=== PATIENT | male | born 1995 | race Caucasian/White ===

== ENCOUNTER 2020-02-19 23:23 | Emergency (ER) | payer MEDICAID ==
[~2020-02-19] VITALS: Ht 175.3 cm; Wt 68.2 kg
[2020-02-19 23:29] VITALS: BP 148/83
[2020-02-20] MEDS ORDERED: FAMO40TA73 PO (01:55)
[2020-02-21] MEDS ORDERED: NAPR-56 PO (11:34)
[2020-02-21] MEDS ORDERED: PENI250T2 PO (11:34)
== END 2020-02-20 02:43 | disposition home or self-care (01) ==
LOC: ER 23:24
DX: K20.9 Esophagitis, unspecified (principal); R42 Dizziness and giddiness; F17.200 Nicotine dependence, unspecified, uncomplicated; F12.90 Cannabis use, unspecified, uncomplicated; R11.10 Vomiting, unspecified; Z88.6 Allergy status to analgesic agent; Z79.899 Other long term (current) drug therapy
CPT/HCPCS: 99283

== ENCOUNTER 2020-02-20 16:45 | Emergency (ER) | payer MEDICAID ==
[~2020-02-20] VITALS: Ht 175.3 cm; Wt 68.2 kg
[~2020-02-20 16:45] MED LIST: FAMO40TA73 PO
[2020-02-20 17:10] VITALS: BP 128/88
--- NOTE | 2020-02-20 17:29 | NUR ---
pt states all he wants is bus pass for [employer] to [facility]. told the patient we do not provide transportation to [facility]. pt decided that he was going to leave without being seen if he could not get a [employer] bus pass
[2020-02-21] MEDS ORDERED: NAPR-56 PO (11:34)
[2020-02-21] MEDS ORDERED: PENI250T2 PO (11:34)
== END 2020-02-20 17:33 | disposition left against medical advice (07) ==
LOC: ER 16:46
DX: R10.9 Unspecified abdominal pain (principal); Z53.21 Procedure and treatment not carried out due to patient leaving prior to being seen by health care provider

== ENCOUNTER 2020-02-20 22:55 | Emergency (ER) | payer MEDICAID ==
[~2020-02-20] VITALS: Ht 172.7 cm; Wt 54.2 kg
[2020-02-20 23:01] VITALS: BP 130/79
[2020-02-21] MEDS ORDERED: NAPR-56 PO (11:34)
[2020-02-21] MEDS ORDERED: PENI250T2 PO (11:34)
== END 2020-02-21 00:25 | disposition home or self-care (01) ==
LOC: ER 22:55
DX: M79.671 Pain in right foot (principal); F12.90 Cannabis use, unspecified, uncomplicated; Z59.0 Homelessness; Z88.6 Allergy status to analgesic agent; Z88.8 Allergy status to other drugs, medicaments and biological substances; Z79.899 Other long term (current) drug therapy
CPT/HCPCS: 99281

== ENCOUNTER 2020-02-21 10:58 | Emergency (ER) | payer MEDICAID ==
--- NOTE | 2020-02-21 11:05 | NUR ---
PT SEEN/ASSESSED AND PLAN OF DISCHARGE BY PROVIDER JOSHUA GLOVER. RIGHT AFTER BEING SEEN PT DEPARTED, PT HAD NOT BEEN TRIAGED.
[2020-02-21] MEDS ORDERED: NAPR-56 PO (11:34)
[2020-02-21] MEDS ORDERED: PENI250T2 PO (11:34)
== END 2020-02-21 11:53 | disposition home or self-care (01) ==
LOC: ER 10:59
DX: K08.89 Other specified disorders of teeth and supporting structures (principal); F12.90 Cannabis use, unspecified, uncomplicated; Z59.0 Homelessness; Z88.6 Allergy status to analgesic agent; Z88.8 Allergy status to other drugs, medicaments and biological substances; Z79.2 Long term (current) use of antibiotics; Z79.899 Other long term (current) drug therapy
CPT/HCPCS: 99283

== ENCOUNTER 2020-02-21 14:10 | Emergency (ER) | payer MEDICAID ==
[~2020-02-21] VITALS: Ht 175.3 cm; Wt 61.0 kg
[~2020-02-21 14:10] MED LIST changes: +NAPR-56 PO; +PENI250T2 PO
[2020-02-21 14:13] VITALS: BP 124/80
--- NOTE | 2020-02-21 14:20 | NUR ---
Pt had visit earlier today and was already evaluated by provider for same but left without DCI or script. Given script and DCI in triage during this visit. Pt instructed to take abx until completion and f/u with dentist MARY LOU; pt verbalized understanding. Amb from ER with steady gait and NAD.
== END 2020-02-21 14:25 | disposition home or self-care (01) ==
LOC: ER 14:11
DX: K08.89 Other specified disorders of teeth and supporting structures (principal); Z53.21 Procedure and treatment not carried out due to patient leaving prior to being seen by health care provider

== ENCOUNTER 2020-02-21 17:55 | Emergency (ER) | payer MEDICAID | END 2020-02-21 19:13 | disposition left against medical advice (07) | LOC: ER 17:56 | DX: T14.8XXA Other injury of unspecified body region, initial encounter (principal); Z53.21 Procedure and treatment not carried out due to patient leaving prior to being seen by health care provider; W57.XXXA Bitten or stung by nonvenomous insect and other nonvenomous arthropods, initial encounter; Y93.89 Activity, other specified; Y92.89 Other specified places as the place of occurrence of the external cause; Y99.8 Other external cause status ==

== ENCOUNTER 2020-02-21 20:57 | Emergency (ER) | payer MEDICAID ==
[~2020-02-21] VITALS: Ht 172.7 cm; Wt 68.2 kg
[2020-02-21 21:01] VITALS: BP 137/91
--- NOTE | 2020-02-21 21:03 | NUR ---
He has no medical complaints other than wanting ativan. Sixth visit today.
== END 2020-02-21 22:09 | disposition left against medical advice (07) ==
LOC: ER 20:57
DX: F41.9 Anxiety disorder, unspecified (principal); Z53.21 Procedure and treatment not carried out due to patient leaving prior to being seen by health care provider

== ENCOUNTER 2020-02-26 06:18 | Emergency (ER) | payer MEDICAID ==
[~2020-02-26] VITALS: Ht 172.7 cm; Wt 68.2 kg
[2020-02-26] MEDS ORDERED: LORA-269 PO (07:05)
[2020-02-26 07:33] LABS: BASOPHILS # (AUTO) 0.1 X10'3 (0-0.2); BASOPHILS % (AUTO) 0.7 % (0-1); EOSINOPHILS # (AUTO) 1.2 X10'3 (0-0.9); EOSINOPHILS % (AUTO) 14.4 % (0-6); HEMATOCRIT 45.1 % (42.0-52.0); HEMOGLOBIN 15.2 g/dl (14.0-17.9); LYMPHOCYTES # (AUTO) 1.3 X10'3 (1.1-4.8); LYMPHOCYTES % (AUTO) 15.7 % (21-51); MEAN CORPUSCULAR HEMOGLOBIN 30.6 PG (27.0-31.0); MEAN CORPUSCULAR HGB CONC 33.6 g/dL (33.0-36.5); MEAN CORPUSCULAR VOLUME 90.9 FL (78-98); MEAN PLATELET VOLUME 8.1 FL (7.4-10.4); MONOCYTES # (AUTO) 0.5 X10'3 (0-0.9); MONOCYTES % (AUTO) 6.2 % (2-12); NEUTROPHILS # (AUTO) 5.3 X10'3 (1.8-7.7); PLATELET COUNT 241 X10'3 (140-440); RED BLOOD COUNT 4.96 X10'6 (4.70-6.10); RED CELL DISTRIBUTION WIDTH 12.7 % (11.5-14.5); WHITE BLOOD COUNT 8.4 X10'3 (4.5-11.0)
[2020-02-26 07:46] LABS: ALANINE AMINOTRANSFERASE 35 U/L (12-78); ALBUMIN/GLOBULIN RATIO 1.3 (1.1-1.5); ALKALINE PHOSPHATASE 74 IU/L (46-116); ANION GAP 5 (8-16); ASPARTATE AMINO TRANSFERASE 15 U/L (10-37); BILIRUBIN,TOTAL 0.3 MG/DL (0.1-1.0); BLOOD UREA NITROGEN 10 MG/DL (7-18); BUN/CREATININE RATIO 10.4 (5.4-32.0); CALCIUM 8.4 MG/DL (8.5-10.1); CHLORIDE 104 MMOL/L (99-107); CREATININE 0.96 MG/DL (0.60-1.10); GLUCOSE 86 MG/DL (70-104); POTASSIUM 4.1 MMOL/L (3.5-5.1); SODIUM 140 MMOL/L (135-145); eGFR > 90 ML/MIN
[2020-02-26 08:00] LABS: ETHANOL < 0.010 GM/DL (0.0-0.010)
--- NOTE | 2020-02-26 09:01 | NUR ---
went in to ask pt to urinate. pt states he doesn't feel like there is anything in his bladder and that he doesn't need to at this time. urinal provided to pt. will cont to encourage pt to void
[2020-02-26 09:37] LABS: URINE AMPHETAMINE SCREEN NEGATIVE (Neg); URINE BARBITUATE SCREEN NEGATIVE (Neg); URINE BENZODIAZEPINES SCREEN NEGATIVE (Neg); URINE CANNABINOID SCREEN POSITIVE (Neg); URINE COCAINE SCREEN NEGATIVE (Neg); URINE METHADONE SCREEN NEGATIVE (Neg); URINE OPIATE SCREEN NEGATIVE (Neg); URINE PHENCYCLIDINE SCREEN NEGATIVE (Neg)
--- NOTE | 2020-02-26 10:07 | NUR ---
meal provided to pt, pt ate then went back to sleep. no signs of distress noted
--- NOTE | 2020-02-26 10:50 | NUR ---
Maggie reynaga in [facility] - 02/26/20 at 1051 by JUL[facility] called back and is talking with
--- NOTE | 2020-02-26 11:12 | NUR ---
Pt transferred from ED8 to OF via WC by PCT Pepe. Primary LIBIA Hines to call report upon return from 15m break. Addendum: 02/26/20 at 1114 by RSTESTARLA pt to OF24.
--- NOTE | 2020-02-26 11:15 | NUR ---
Patient arrived to ED overflow-bed 24. Resting in bed with eyes closed. No s/sx of distress noted.
--- NOTE | 2020-02-26 11:50 | NUR ---
Called pharmacy on chart, [facility] to clarify meds, states patient has not had meds refilled in over 1 year. Asked patient where he gets his meds filled, patient states, "I don't know."
--- NOTE | 2020-02-26 12:30 | NUR ---
Resting in bed with eyes closed, no s/sx of distress noted. Able to make needs known.
--- NOTE | 2020-02-26 13:17 | NUR ---
Patient finished lunch, up to BR currently. Resting back in bed with eyes closed. Registration at bedside to have him sign papers.
--- NOTE | 2020-02-26 14:40 | NUR ---
Patient resting in bed with eyes closed, no s/sx of distress noted. Will cont.to monitor.
--- NOTE | 2020-02-26 15:38 | NUR ---
[facility] speaking with patient at this time. Patient awake and resting in bed.
--- NOTE | 2020-02-26 16:32 | NUR ---
Transferred care to Katiuska REZA.
--- NOTE | 2020-02-26 17:40 | NUR ---
Up to bathroom, asking when dinner comes
[2020-02-26] MEDS ORDERED: LORazepam 1 MG tablet PO PRN (20:20)
--- NOTE | 2020-02-26 20:50 | NUR ---
LIBIA Marcos from [facility] called and they will be admitting the patient upstairs.
[2020-02-26 21:50] VITALS: BP 114/61
[2020-02-28] MEDS ORDERED: FAMO40TA73 PO (11:01)
[2020-02-28] MEDS ORDERED: TRAZ-251 PO (11:01)
[2020-02-28] MEDS ORDERED: NICO-687 TD (11:01)
[2020-02-28] MEDS ORDERED: PENI250T2 PO (11:01)
== END 2020-02-26 21:55 | disposition home or self-care (01) ==
LOC: ER 06:18
DX: R45.851 Suicidal ideations (principal); F17.200 Nicotine dependence, unspecified, uncomplicated; F12.90 Cannabis use, unspecified, uncomplicated; Z59.0 Homelessness; Z88.8 Allergy status to other drugs, medicaments and biological substances; Z79.899 Other long term (current) drug therapy
CPT/HCPCS: 36415; 80053; 80305; 80320; 84443; 85025; 99285

== ENCOUNTER 2025-01-08 19:51 | Emergency (ER) | payer MEDICAID ==
[~2025-01-08] VITALS: Ht 167.6 cm; Wt 65.5 kg
[~2025-01-08 19:51] MED LIST changes: -NAPR-56 PO; +NICO-687 TD; +TRAZ-251 PO
--- NOTE | 2025-01-08 20:08 | Physician Documentation ---
History of Present Illness ~ Chief Complaint: Anxiety Stated Complaint: Primary Medical Doctor: none HPI 29-year-old male presents to the ED with a complaint of decline economic circumstances. Also states he has concerned about the friends he has been hanging out with. He does report ongoing methamphetamine use. Additionally he says he he has a history of schizoaffective disorder along with having depression anxiety. States he wants to get back to [place]. He adamantly denies having any SI or HI intention. Medication Reconciliation Allergies: Coded Allergies: acetaminophen (Unverified Allergy, Intermediate, THROAT SWELL, 01/08/25) quetiapine (Unverified Allergy, Intermediate, THROAT SWELL, 01/08/25) aspirin (Unverified Allergy, Mild, THROAT SWELL, 01/08/25) Scheduled Buspirone Hcl* (Buspar*), 1 TAB PO Q12H Famotidine (Pepcid), 1 TABLET PO DAILY Hydroxyzine Hcl* (Atarax*), 1 TAB PO Q12H Nicotine 21 MG Patch* (Habitrol 21 MG Patch*), 1 PATCH TD DAILY Penicillin V Potassium* (Penicillin VK*), 1 TAB PO Q6H Scheduled PRN Trazodone HCl (Trazodone HCl), 50 MG PO HS PRN for INSOMNIA Past Medical History Past Medical History: No Pertinent History Past Surgical History: noncontributory Alcohol Use: None Drug Use: marijuana Lives In: Homeless Physical Exam Vital Signs: Temperature: 96.8, Source: Temporal, Heart Rate: 101, Respiratory Rate: 15, BP: 144/94, Pulse Oximetry: 99, Weight: 65.500 Progress Results/Orders Results/Orders Completed Orders - JUSTIN PURCELL NP Hydroxyzine Tablet (Atarax Tablet) (01/08/25 20:10) Medications Received in ER Medications (Trade) Dose Ordered Sig/Yousif Route PRN Reason Start Time Stop Time Status Last Admin Dose Admin (Atarax tablet) 25 mg ONCE ONCE PO 01/08/25 20:10 01/08/25 20:11 DC 01/08/25 20:41 25 MG Vital Signs 01/08/25 01/08/25 19:55 20:47 Temp 96.8 98.6 Pulse 101 99 Resp 15 20 B/P (MAP) 144/94 140/90 Pulse Ox 99 98 Medical Decision Making Findings Based on my interview with the patient he does not meet criteria for a 1799 hold as he does not present with a HI SI nor does he show the clinical indications for being gravely disabled. Can not give him a bus pass in an prescribe anxiety medication as he does have insight to what he previously took. Due to his socioeconomic circumstances, he would likely benefit with from a ride to [place] back to be with his family in his hometown Differential Dx:Considerations: Include: Alcohol abuse, Anxiety, Bipolar disorder, Conversion disorder, Depression, Encephaloathy, Homicidal, Panic disorder, Personality disorder, Schizophrenia, Substance abuse, Suicidal, Other Departure Disposition: HOME / SELF CARE / HOMELESS Impression: Primary Impression: Anxiety Additional Impressions: Depressed Methamphetamine abuse Condition: Stable Discharge Instructions: Panic Attack, Emotional Crisis Referrals: NO PRIMARY CARE PROVIDER (PCP) Prescriptions Hydroxyzine Hcl* (Atarax*) 25 Mg Tablet 1 TAB PO Q12H for anxiety for 30 Days, #60 TAB Prov: JUSTIN PURCELL NP 01/08/25 Buspirone Hcl* (Buspar*) 10 Mg Tablet 1 TAB PO Q12H for 30 Days, #60 TAB Prov: JUSTIN PURCELL DIRECTOR DENTAL SERVICES 01/08/25 Education Educated: Patient Educated regarding: diagnosis Signature Scribe Signature: chiquis Attestation: Scribed for Emergency,Department by Justin Purcell - VICENTE . 01/08/25 23:50 JUSTIN PURCELL NP Jan 08, 2025 20:08
[2025-01-08] MEDS ORDERED: BUSP10TA11 PO (20:11)
[2025-01-08] MEDS ORDERED: HYDR-3686 PO (20:11)
[2025-01-08] MEDS: hydrOXYzine 25 MG tablet PO ONE (20:41)
[2025-01-08 20:47] VITALS: BP 140/90; PULSE 99; RESP 20; TEMP 98.6; O2SAT 98
[2025-01-09] MEDS ORDERED: BUSP10TA3 PO (21:31)
== END 2025-01-08 20:48 | disposition home or self-care (01) ==
LOC: ER 19:51
DX: F41.9 Anxiety disorder, unspecified (principal); F32.A Depression, unspecified; F15.10 Other stimulant abuse, uncomplicated; F25.9 Schizoaffective disorder, unspecified; F12.90 Cannabis use, unspecified, uncomplicated; Z88.6 Allergy status to analgesic agent
CPT/HCPCS: 99283; Q0177

== ENCOUNTER 2025-01-09 19:43 | Emergency (ER) | payer MEDICAID ==
[~2025-01-09] VITALS: Ht 175.3 cm; Wt 84.3 kg
[~2025-01-09 19:43] MED LIST changes: +BUSP10TA11 PO; +HYDR-3686 PO
--- NOTE | 2025-01-09 20:31 | Physician Documentation ---
History of Present Illness ~ Chief Complaint: Mental Health Eval Stated Complaint: MH EVAL/NOT FEELING SAFE IN PUBLIC Time Seen by MD: 20:30 Primary Medical Doctor: none HPI Patient is seen today with complaints of suicidal ideation starting today. Karol jarrett admits to history of schizophrenia and states he has been taking today about stepping out front of the car. Patient denies any homicidal ideation. Patient denies any previous suicide attempts. Patient denies any chest pain or shortness of breath or abdominal pain or nausea, vomiting, diarrhea. Patient has no other concern or complaint at this time. Medication Reconciliation Allergies: Coded Allergies: acetaminophen (Unverified Allergy, Intermediate, THROAT SWELL, 01/08/25) quetiapine (Unverified Allergy, Intermediate, THROAT SWELL, 01/08/25) aspirin (Unverified Allergy, Mild, THROAT SWELL, 01/08/25) Scheduled Buspirone HCl (Buspirone HCl), 1 TAB PO BID, (Reported) Discontinued Medications Buspirone Hcl* (Buspar*), 1 TAB PO Q12H Discontinued Reason: patient no longer taking Famotidine (Pepcid), 1 TABLET PO DAILY Discontinued Reason: patient no longer taking Hydroxyzine Hcl* (Atarax*), 1 TAB PO Q12H Discontinued Reason: patient no longer taking Nicotine 21 MG Patch* (Habitrol 21 MG Patch*), 1 PATCH TD DAILY Discontinued Reason: patient no longer taking Penicillin V Potassium* (Penicillin VK*), 1 TAB PO Q6H Discontinued Reason: patient no longer taking Trazodone HCl (Trazodone HCl), 50 MG PO HS PRN for INSOMNIA Discontinued Reason: patient no longer taking Past Medical History Past Medical History: No Pertinent History Past Surgical History: noncontributory Alcohol Use: None Drug Use: marijuana Lives In: Homeless Review of Systems Constitutional: Denies: chills, fever, weakness Eyes: Denies: pain, blurred vision ENT: Denies: ear pain, nose pain, throat pain, mouth pain Respiratory: Denies: cough, shortness of breath Cardiovascular: Denies: chest pain, palpitations Gastrointestinal: Denies: abdominal pain, nausea, vomiting Genitourinary: Denies: burning, dysuria Male Genitalia: Denies: penile discharge, testicular pain Neurological: Denies: headache, dizziness Musculoskeletal: Denies: pain, swelling Integumentary: Denies: rash, lesions Allergic/Immunologic: Denies: hives, itching Hematologic/Lymphatic: Denies: no symptoms reported Psychiatric: Denies: depression, anxiety Physical Exam Vital Signs: Temperature: 98.3, Heart Rate: 81, Respiratory Rate: 16, BP: 138/89, Pulse Oximetry: 99, Weight: 84.350 Oxygen Flow Rate: 0 Physical Exam General: Awake and Alert, no acute distress. HEENT: Conjunctiva pink, Sclera clear, Mucus Membranes moist. Neck: Supple without masses and tenderness. Resp: Unlabored. Lungs clear to auscultation bilaterally. Heart: Regular Rate and rhythm, normal S1 and S2 without murmur, rub or gallop. Abdomen: Soft and non tender no organomegaly Extremities: No cyanosis,clubbing or edema. Skin: Warm and Dry. Progress Results/Orders Results/Orders Orders - HARSHAD KUMAR Med Rec (01/09/25 20:30) 1799.11 (01/09/25 20:30) Close Observation Level (01/09/25 20:30) Covid19 Binax Poc Result Entry (01/09/25 20:30) Substance Use Navigator (01/09/25 20:30) Regular Diet (01/10/25 Breakfast) Buspirone Tablet (Buspar Tablet) (01/09/25 22:08) Completed Orders - HARSHAD KUMAR Cbc/Diff (01/09/25 20:30) Drug Screen, Urine (01/09/25 20:30) Ethanol (01/09/25 20:30) TSH (01/09/25 20:30) BMP (01/09/25 20:30) Ua With Microscopic (01/09/25 23:20) Vital Signs 01/09/25 19:47 Temp 98.3 Pulse 81 Resp 16 B/P (MAP) 138/89 Pulse Ox 99 O2 Flow Rate 0 Laboratory Tests Test 01/09/25 20:32 01/09/25 20:39 01/09/25 23:20 SARS-CoV-2 Antigen (Rapid) Negative White Blood Count 5.6 Red Blood Count 4.82 Hemoglobin 14.4 Hematocrit 42.4 Mean Corpuscular Volume 87.9 Mean Corpuscular Hemoglobin 29.9 Mean Corpuscular Hemoglobin Concent 34.0 Red Cell Distribution Width 13.1 Platelet Count 235 Mean Platelet Volume 7.4 Neutrophils (%) (Auto) 44.6 Lymphocytes (%) (Auto) 35.6 Monocytes (%) (Auto) 8.3 Eosinophils (%) (Auto) 10.6 H Basophils (%) (Auto) 0.9 Neutrophils # (Auto) 2.5 Lymphocytes # (Auto) 2.0 Monocytes # (Auto) 0.5 Eosinophils # (Auto) 0.6 Basophils # (Auto) 0.1 CBC Comment Sodium Level 140 Potassium Level 3.9 Chloride Level 106 Carbon Dioxide Level 29.1 Anion Gap 5 L Blood Urea Nitrogen 10 Creatinine 1.16 H Estimated GFR/1.73 m2 74 BUN/Creatinine Ratio 8.6 L Glucose Level 88 Calcium Level 8.2 L Albumin 3.5 Thyroid Stimulating Hormone (TSH) 1.26 Chemistry Comments Ethyl Alcohol Level < 10 Urine Specimen Description Voided Urine Color Yellow Urine Clarity Cloudy Urine pH 7.5 Urine Specific Susan 1.020 Urine Protein Negative Urine Glucose (UA) Negative Urine Ketones Negative Urine Occult Blood Negative Urine Nitrite Negative Urine Bilirubin Negative Urine Urobilinogen 0.2 Urine Leukocyte Esterase Negative Urine RBC 0-2 Urine WBC 0-4 Urine Squamous Epithelial Cells Few Urine Triple Phosphate Crystals 2+ Urine Bacteria None seen Urine Mucus Few Volume Urine Centrifuged 10 ml Urine Comment Urine Opiates Screen Negative Urine Methadone Screen Negative Urine Fentanyl Screen Negative Urine Barbiturates Screen Negative Urine Phencyclidine Screen Negative Urine Amphetamines Screen Negative Urine Benzodiazepines Screen Negative Urine Cocaine Screen Negative Urine Cannabinoids Screen Positive Drug Screen Comment Medical Decision Making Findings Patient is seen today with complaints of suicidal ideation starting today. Patient admits to history of schizophrenia and states he has been taking today about stepping out front of the car. Patient denies any homicidal ideation. Patient denies any previous suicide attempts. Patient denies any chest pain or shortness of breath or abdominal pain or nausea, vomiting, diarrhea. Patient has no other concern or complaint at this time. Patient that is medically cleared for mental health evaluation. Departure Disposition: 30 STILL A PATIENT Impression: Primary Impression: Suicidal ideation Condition: Stable Discharge Instructions: Medical Screening Exam, Suicidal Feelings: How to Help Yourself Additional Instructions: Transfer orders for [facility]: At this time there is no evidence of an emergent medical condition that would preclude (admission/transfer) to a psychiatric unit via [facility] protocol for further psychiatric, as well as medical evaluation and treatment. At this time I have no reason to believe that transfer via [facility] protocol would have serious medical compromise in the patient's health. Patient that is medically cleared for mental health evaluation. Referrals: NO PRIMARY CARE PROVIDER (PCP) Signature Scribe Signature: No scribe Attestation: No scribe HARSHAD KUMAR [facility] Jan 09, 2025 20:31
[2025-01-09 20:52] LABS: BASOPHILS # (AUTO) 0.1 X10'3 (0-0.2); BASOPHILS % (AUTO) 0.9 % (0-1); EOSINOPHILS # (AUTO) 0.6 X10'3 (0-0.9); EOSINOPHILS % (AUTO) 10.6 % (0-6); HEMATOCRIT 42.4 % (42.0-52.0); HEMOGLOBIN 14.4 g/dl (14.0-17.9); LYMPHOCYTES % (AUTO) 35.6 % (21-51); MEAN CORPUSCULAR HEMOGLOBIN 29.9 PG (27.0-31.0); MEAN CORPUSCULAR VOLUME 87.9 FL (78-98); MEAN PLATELET VOLUME 7.4 FL (7.4-10.4); MONOCYTES # (AUTO) 0.5 X10'3 (0-0.9); MONOCYTES % (AUTO) 8.3 % (2-12); NEUTROPHILS # (AUTO) 2.5 X10'3 (1.8-7.7); NEUTROPHILS % (AUTO) 44.6 % (42-75); PLATELET COUNT 235 X10'3 (140-440); RED BLOOD COUNT 4.82 X10'6 (4.70-6.10); RED CELL DISTRIBUTION WIDTH 13.1 % (11.5-14.5); WHITE BLOOD COUNT 5.6 X10'3 (4.5-11.0)
[2025-01-09 21:23] LABS: ALBUMIN 3.5 G/DL (3.4-5.0); ANION GAP 5 (8-16); BLOOD UREA NITROGEN 10 MG/DL (7-18); BUN/CREATININE RATIO 8.6 (10.0-20.0); CALCIUM 8.2 MG/DL (8.5-10.1); CHLORIDE 106 MMOL/L (99-107); CREATININE 1.16 MG/DL (0.60-1.10); GLUCOSE 88 MG/DL (70-104); POTASSIUM 3.9 MMOL/L (3.5-5.1); SODIUM 140 MMOL/L (135-145); THYROID STIMULATING HORMONE 1.26 ulU/ml (0.34-4.50); TOTAL CARBON DIOXIDE 29.1 MMOL/L (24-32); eCRCL 94 ML/MIN; eGFR 74 ML/MIN
[2025-01-09 21:27] LABS: ETHANOL < 10 MG/DL (<10)
[2025-01-09] MEDS ORDERED: BUSP10TA3 PO (21:31)
[2025-01-09] MEDS: busPIRone 5mg tablet PO SCH (22:08)
[2025-01-09] MEDS ORDERED: mag hydrox/Alum hydrox/simeth 30ml oral suspension PO PRN (22:25)
[2025-01-09 23:34] LABS: BILIRUBIN,URINE NEGATIVE (Neg); CLARITY,URINE CLOUDY (Clear); COLOR,URINE YELLOW (Yellow); GLUCOSE, URINE NEGATIVE (Neg); KETONES,URINE NEGATIVE (Neg); LEUKOCYTE ESTERASE ,URINE NEGATIVE (Neg); NITRITES, URINE NEGATIVE (Neg); OCCULT BLOOD,URINE NEGATIVE (Neg); PH,URINE 7.5 (4.8-8.0); PROTEIN,URINE NEGATIVE (Neg); UROBILINOGEN,URINE 0.2 E.U/dL (0.2-1.0)
[2025-01-09 23:35] LABS: UA COLLECTION TYPE VOIDED
[2025-01-09 23:39] LABS: SQUAMOUS EPITHELIAL CELL,UR FEW /LPF (FEW)
[2025-01-09 23:40] LABS: BACTERIA,URINE NONE SEEN /HPF (Neg); MUCUS STRANDS FEW /LPF (Neg); RBC,URINE 0-2 /HPF (0-2); TRIPLE PHOSPHATE CRYST 2+ /HPF (NEGATIVE); WBC,URINE 0-4 /HPF (0-4)
[2025-01-10 00:14] LABS: URINE AMPHETAMINE SCREEN NEGATIVE (Neg); URINE BARBITUATE SCREEN NEGATIVE (Neg); URINE BENZODIAZEPINES SCREEN NEGATIVE (Neg); URINE CANNABINOID SCREEN POSITIVE (Neg); URINE COCAINE SCREEN NEGATIVE (Neg); URINE METHADONE SCREEN NEGATIVE (Neg); URINE OPIATE SCREEN NEGATIVE (Neg); URINE PHENCYCLIDINE SCREEN NEGATIVE (Neg)
[2025-01-10 06:14] VITALS: BP 112/63; PULSE 60; TEMP 96.4; O2SAT 98
[2025-01-10 17:56] VITALS: RESP 16
== END 2025-01-10 18:02 ==
LOC: ER 19:44
DX: R45.851 Suicidal ideations (principal); F20.9 Schizophrenia, unspecified; Z88.6 Allergy status to analgesic agent; Z20.822 Contact with and (suspected) exposure to COVID-19; Z79.899 Other long term (current) drug therapy
CPT/HCPCS: 36415; 80048; 80305; 80320; 81001; 84443; 85025; 87811; 99285